=== PATIENT | female | born 1990 | race Caucasian/White ===

== ENCOUNTER → 2018-05-22 | Outpatient (REF) | payer OTHER ==
[2018-05-22 14:08] LABS: PLATELET COUNT, AUTOMATED 200 K/uL (150-450)
== END ==
PROVIDERS: ATTEND Family Medicine
DX: R19.7 Diarrhea, unspecified (principal)
CPT/HCPCS: 82040; 82247; 82310; 82374; 82435; 82565; 82947; 84075; 84132; 84155; 84295; 84450; 84460; 84520; 85025

== ENCOUNTER → 2018-05-22 | Outpatient (CLI) | payer OTHER ==
[~2018-05-22] MED LIST: IOPAMIDOL 76% 50 ML INFUS BTL 100 ML ONE
--- NOTE | 2018-05-22 16:42 | RADIOLOGY IMAGING REPORT ---
FACILITY: [facility] PATIENT NAME: Fabi Leigh : 1990 MR: [id number] V: [id number] EXAM DATE: ORDERING PHYSICIAN: TRAN HURST TECHNOLOGIST: Location: [facility] Patient: Fabi Leigh : 1990 Visit/Account:[id number] Date of Sevice: 05/22/2018 EXAMINATION: CT abdomen and pelvis with contrast COMPARISON: None. HISTORY: Abdominal pain. PROCEDURE: Multiplanar contrast enhanced CT of the abdomen and pelvis with 75 mL intravenous Isovue 3 70. One of the following dose optimization techniques was utilized in the performance of this exam: A utomated exposure control; adjustment of the mA and/or kV according to the patient's size; or use of an iterative reconstruction technique. Specific details can be referenced in the facility's radiolo gy CT exam operational policy. FINDINGS: Visualized thorax: Negative. Liver: Negative. Gallbladder and biliary system: Negative Spleen: Negative. Pancreas: Negative. Adrenal glands: Negative. Kidneys and bladder: No renal mass or evidence of an obstructive uropathy. Urinary bladder is unrema rkable. Vessels: Unremarkable. Specifically, the major mesenteric vessels are widely patent including the vas culature perfusing the inflamed loops of bowel described below. Bowel and mesentery: Distal ileum moderate length segment of marked bowel wall edema and thickening w ith the small bowel wall measuring up to 7 mm. Additionally, there is mild mucosal enhancement and me senteric edema. No pneumatosis or evidence of an associated obstruction. There is relative sparing of the terminal ileum. Appendix is within normal limits. Minimal stool in the colon. No evidence of col onic inflammation. Pelvic organs: Negative. Lymph nodes: No adenopathy. Free air/free fluid: Small amount of simple appearing free fluid in the dependent pelvis is favored t o be reactive. No organized fluid collection. No pneumoperitoneum. Abdominal wall and osseous structures: Negative. IMPRESSION: Distal ileum marked inflammation is most suggestive of an infectious versus inflammatory enteritis. I schemic enteritis is considered very unlikely. Results were discussed with TRAN HURST at 05/22/2018 4:35 PM. Report Dictated By: Curt Mcghee MD at 05/22/2018 4:24 PM Report E-Signed By: Curt Mcghee MD at 05/22/2018 4:37 PM WSN:[id number]
== END ==
LOC: CT 14:35
PROVIDERS: ATTEND Family Medicine
DX: A09 Infectious gastroenteritis and colitis, unspecified (principal)
CPT/HCPCS: 74177; Q9967